=== PATIENT | female | born 1985 | race Caucasian/White ===

== ENCOUNTER 2025-04-24 07:51 | Outpatient (AMB) | payer OTHER, SELFPAY ==
--- NOTE | 2025-04-24 07:56 | A.OFFPC_ITS ---
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 Refrigeration Required: No Accompanied by: Self / Same As Patient Allergies No Known Allergies Allergy (Verified 04/24/25 08:08) Medication List - Last Reconciled 04/24/25 by Mary Krishnamurthy PA-C No Known Home Meds Tobacco use date assessed: 04/24/25 Dental Screening Dental Screen Date: 04/24/25 Did you have a dental visit in the last 12 months?: No Did you have a dental problem in the last 6 months where you did not have access to dental care?: No Was dental information given to patient?: Patient has dentist HPI 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 Presenting for a wellness visit and to establish care. Depression was diagnosed in 2007, and the patient is currently seeing a counselor biweekly through [facility] without medication. The patient reports manageable anxiety without medication. The patient experienced hyperthyroidism post-, which resolved after monitoring for a year. The patient reports gastrointestinal symptoms suggestive of Irritable Bowel Syndrome (IBS), including intermittent diarrhea and upset stomach, potentially related to dietary triggers. The patient has not had a colonoscopy despite a family history of colon cancer in her mother, diagnosed at age 48 vaccines: Td, flu and covid UTD eye doctor: yearly mammo: ordered today colonoscopy: referral placed to GI today pap smear: referral placed to grommet worker today [facility] Family History Mother Colon cancer, Onset Age: 48 Other Substance abuse Social History Household Members: Children Housing: Apartment Are you a primary hospice patient care secretary to a significant other at home: No Do you presently have visiting nurse or other home services: No 75 years or older and lives alone: No Alcohol intake: current Comment: ocasionally Patient Tobacco Use Status: Never used Tobacco e-Cigarette/Vaping Use: Never Used Second Hand Smoke Exposure: No service: No Current occupational status: employed 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 1. Little interest or pleasure in doing things: not at all 2. Feeling down, depressed, or hopeless: not at all 3. Trouble falling or staying asleep, or sleeping too much: not at all 4. Feeling tired or having little energy: not at all 5. Poor appetite or overeating: not at all 6. Feeling bad about yourself - or that you are a failure or have let yourself or your family down: not at all 7. Trouble concentrating on things, such as reading the newspaper or watching television: not at all 8. Moving or speaking so slowly that other people could have noticed. Or the opposite - being so fidgety or restless that you have been moving around a lot more than usual: not at all 9. Thoughts that you would be better off or of hurting yourself in some way: not at all Total score: 0 Depression Screening Interpretation: Negative Depression Screening Done: Yes Source: Developed by Drs. Ronnie Castorena, Lori Lyn, Ga Rosenthal and colleagues, with an educational rojelio from [employer]. Thrive Questionnaire Date Thrive assessed: 04/24/25 I am a: Patient What is your living situation today?: I have a steady place to live Within the past 12 months, did the food you bought not last and you didn't have the money to get more?: Never true Within the past 12 months, did you worry whether your food would run out before you got money to buy more?: Never true Do you have trouble paying for medicines?: No Do you have trouble getting transportation to medical appointments?: No Do you have trouble paying your heating and electricity bill?: No Do you have trouble taking care of your child, family member or friend?: No Do you have trouble with day-to-day activities such as bathing, preparing meals, shopping, managing finances, etc.?: No Are you currently unemployed and looking for a job?: No Are you interested in more education?: No Please select the resources that you would like help with: None Currently or been in a relationship where the following occur: No concerns reported THRIVE Score: 0 AUDIT C Alcohol Use Questionnaire (AUDIT-C) 1. How often do you have a drink containing alcohol?: Monthly or less 2. How many drinks containing alcohol do you have on a typical day when you are drinking?: 1 or 2 3. How often do you have six or more drinks on one occasion?: Never Total Score: 1 Score Reviewed/Action Taken: Yes VINAY-7 AMB Questionnaire VINAY-7 Feeling nervous, anxious, or on edge: 0 = Not at all Not being able to stop or control worryin = Not at all Worrying too much about different things: 0 = Not at all Trouble relaxin = Not at all Being so restless that it is hard to sit still: 0 = Not at all Becoming easily annoyed or irritable: 0 = Not at all Feeling afraid as if something awful might happen: 0 = Not at all Total VINAY-7 score (0-4 normal; 5-9 mild; 10-14 moderate; 15-21 severe): 0 Source: Developed by Drs. Ronnie Castorena, Lori Lyn, Ga Rosenthal and colleagues, with an educational rojelio from [employer]. VINAY-7 Assessment Billing VINAY-7 Assessment Tool: VINAY-7 Assessment 79777 Review of Systems Const Denies body aches, Denies fatigue, Denies fever(s), Denies frequent falls, Denies headache(s) and Denies weakness Eyes Reports no additional complaints and Denies change in vision ENT Denies dysphagia, Denies dizziness, Denies facial pain, Denies headache(s), Denies nasal congestion and Denies odynophagia Card Denies chest pain, Denies syncope, Denies irregular heart rhythm, Denies leg edema, Denies lightheadedness and Denies dyspnea Resp Denies cough and Denies dyspnea GI Denies abdominal pain, Denies constipation, Denies dysphagia, Denies dyspepsia, Reports diarrhea, Reports loose stools, Denies nausea, Denies odynophagia and Denies vomiting Denies urinary frequency, Denies dysuria, Denies urinary hesitancy and Denies urinary urgency Musc Details: left ring finger pain Denies back pain and Denies myalgias Skin/Breast Reports system reviewed and no additional complaints, except as documented Neuro Denies dizziness, Denies syncope, Denies frequent falls, Denies headache(s) and Denies weakness Psych Reports no additional complaints Endo Denies fatigue Physical exam (Primary Care) Vital Signs: Last Vital Signs Pulse 95 04/24/25 08:00 BP 106/80 04/24/25 08:00 Pulse Ox 97 04/24/25 08:00 Oxygen Delivery Method Room Air 04/24/25 08:00 BMI result Body Mass Index 28.4 Tobacco/Smoking Status: Tobacco use Status Tobacco use date assessed 04/24/25 04/24/25 08:06 Patient Tobacco Use Status Never used Tobacco 04/24/25 08:06 e-Cigarette/Vaping Use Never Used 04/24/25 08:06 PHQ-9: PHQ-9 Score PHQ-9: Total score 0 04/24/25 08:45 Depression Screening Interpretation: Negative Thrive Assessment: Date of Thrive Assessment Date Thrive assessed 04/24/25 04/24/25 08:06 Currently or been in a relationship where the following occur: No concerns reported Const General: cooperative, healthy appearing, comfortable and no acute distress Orientation/consciousness: patient oriented x3 HENMT Head: Yes normocephalic Ears: hearing grossly normal bilaterally General nose exam: Normal external nose present Eyes General: appearance normal, both eyes and all related structures Conjunctivae: conjunctivae normal Neck Neck: Yes full ROM and Yes no lymphadenopathy Resp Effort & Inspection: normal respiratory effort Auscultation: clear to auscultation bilaterally, no crackles, no rales, no rhonchi and no wheezes Cardio Rate: regular rate Rhythm: regular rhythm Skin General skin exam: no rashes or lesions noted Neuro General: patient oriented x3 Gait exam (Neuro): Normal gait present Extrem General: Yes normal to inspection, Yes full ROM and No edema Psych Affect: normal affect Attitude: cooperative Insight: Good insight present (Psych) Judgement: Good judgement present (Psych) Coding Level of Care Code New Pt Level 4 (57899) Diagnoses Depression F32.A Family history of colon cancer Z80.0 hyperthyroidism O99.285; E05.90 Diarrhea R19.7 Additional Codes VINAY-7 Assessment Billing - VINAY-7 Assessment Tool: VINAY-7 Assessment 05633 ([id number]) Assessment & Plan Assessment & Plan (1) Depression: Comment: Counselor through [facility] biweekly Code(s): F32.A - Depression, unspecified Category: Medical Plan: Currently following with [facility] for counseling by weekly. Feels good without medication at this time and will reach out should this change. (2) Family history of colon cancer: Code(s): Z80.0 - Family history of malignant neoplasm of digestive organs Category: Medical Plan: Referral was placed to for colonoscopy screening. (3) hyperthyroidism: Code(s): O99.285 - Endocrine, nutritional and metabolic diseases complicating the puerperium; E05.90 - Thyrotoxicosis, unspecified without thyrotoxic crisis or storm Category: Medical Plan: Plan for updated blood work (4) Diarrhea: Code(s): R19.7 - Diarrhea, unspecified Category: Medical Plan: Plan to try low FODMAP diet have a fiber supplement and exercise as tolerated. Follow up in 3 months or sooner as needed Plan The patient will receive referrals for a colonoscopy, mammogram, and Pap smear to address preventative care needs. Blood work will be conducted to screen for cholesterol, thyroid function, vitamins, kidney, liver, and electrolytes. The patient is advised to follow a low FODMAP diet and increase fiber intake to manage symptoms of Irritable Bowel Syndrome IBS). The patient will continue biweekly counseling sessions for depression and anxiety management. Follow-up is scheduled in three months to review blood work results and discuss any further interventions needed based on specialist consultations. This note was constructed using voice recognition software. While every effort has been made to ensure accuracy and director global strategic publisher sales, still areas may have been included sometimes these areas may affect the content or meeting of the given symptoms. Total time spent caring for the patient today was 30 minutes. This includes time spent before the visit reviewing the chart, time spent during the visit, and time spent after the visit and documentation. Patient was informed and verbally consented to the use of an ambient scribe for clinic note documentation during this visit. Orders: Orders MM tomosynthesis screening BI Today Z12.31 - Encounter for screening mammogram for malignant neoplasm of breast Comprehensive Met. Panel Today Z13.1 - Encounter for screening for diabetes mellitus Lipid Panel Today Z13.220 - Encounter for screening for lipoid disorders Vitamin B12 and Folate Today Z13.21 - Encounter for screening for nutritional disorder Vitamin D 25-OH Total Today Z13.21 - Encounter for screening for nutritional disorder Free T4 (Free Thyroxine) Today E05.90 - Thyrotoxicosis, unspecified without thyrotoxic crisis or storm, O99.285 - Endocrine, nutritional and metabolic diseases complicating the puerperium, Z00.00 - Encounter for general adult medical examination without abnormal findings Complete Blood Count Auto Diff Today Z13.0 - Encounter for screening for diseases of the blood and blood-forming organs and certain disorders involving the immune mechanism Referrals Gastroenterology Referral Z12.11 - Encounter for screening for malignant neoplasm of colon, Z80.0 - Family history of malignant neoplasm of digestive organs RAILROAD HAND Referral Z12.4 - Encounter for screening for malignant neoplasm of cervix
--- OUTSIDE RECORDS SUMMARY | 2025-04-24 07:56 | XMS_ITS ---
Author Name [facility] Organization Unknown Encounters Encounter Type Encounter Reason Primary Diagnosis Location Date Ambulatory [facility], [facility]. ([facility]) 08/13/2022 Care Team Organization Name Specialty Phone Email Start Date End Da danielito [facility] Serge [facility] 07/08/20222023
--- OUTSIDE RECORDS SUMMARY | 2025-04-24 07:56 | XMS_ITS | Clinical Summary ---
Author Organization [facility] ity Address [address] [place] [address] Care Team Providers Care Aircraft Parts Assembler Name Role Phone Harshad Kee DO Primary Care Provider [phone] Surgical History Surgery Date Site/Laterality Comments WISDOM TOOTH EXTRACTION PROCEDURE: HISTORICAL WISDOM TEETH EXTRACTION Medical History Medical History Date Comments Thyrotoxicosis 04/27/2006 DX:Thyrotoxicosi s; COMMENT: Saw dr steward-had post thyroidits and than became euthryoid Depression 03/23/2008 DX:Depression; C OMMENT: Deidra Olsen( therapist) Influenza B 08/2019 DX:Influenza B Family History Medical History Relation Name Comments Colon cancer Mother Breast cancer Neg Hx Ovarian cancer Neg Hx Relation Name Status Comments Brother Alive 1,healthy Father both parents he althy Mother Alive Social History Tobacco Use Types Packs/Day Years Used Date Smoking Tobacco: Never Smokeless Tobacco: Never Alcohol Use Standard Drinks/Week Comments Yes 0 (1 standard drink = 0.6 oz pur e alcohol) Comments Unknown Sex and Gender Information Value Date Recorded Sex Assigned at Not on file Legal Sex Female 12:02 AM EST Gender Identity Not on file Sexual Orientation Not on file Obstetrics History Last Filed Vital Signs Vital Sign Reading Time Taken Comments Blood Pressure 89/62 03/21/2022 11:14 AM EDT Pulse 95 03/21/2022 11:14 AM EDT Temperature - - Respiratory Rate - - Oxygen Saturation - - Inhaled Oxygen Concentration - - Weight 80.8 kg (178 lb 3.2 oz) 03/21/2022 11:14 AM EDT Height 172.7 cm (5' 8 ) 03/21/2022 11:14 AM EDT Body Mass Index 27.1 03/21/2022 11:14 AM EDT Plan of Treatment Health Maintenance Due Date Last Done Comments Breast Cancer Screening 1984 HIV Screening 08/03/2022 Hepatitis C Screening 08/03/2022 Social Influencers of Health Screening 08/03/2022 Cervical Cancer Screening: Pap Smear 04/11/2024 04/11/2021 COVID-19 Vaccine ( season) 2024 11/20/2020, 10/30/2020 Depression Screening 08/31/2024 Influenza Vaccine (#1) 2025 8, 06/04/2017, 05/23/2016, Additional history exists DTaP,Tdap,and Td Vaccines (8 - Td or Tdap) 09/30/2026 09/30/2016, 03/23/2008, 10/04/1998, Additional history exists IPV Vaccines Completed 05/25/1989, 08/1986, 1984, Additional history exists MMR Vaccines Completed 03/25/1996, 10/29/1985 Hepatitis B Vaccines Completed 10/01/1998, 03/25/1996, 12/01/1995 HPV Vaccines Completed 10/28/2007, 06/01, 04/01/2007 HIB Vaccines Aged Out No longer eligi ble based on patient's age to complete this topic Hepatitis A Vaccines Aged Out No long er eligible based on patient's age to complete this topic Meningococcal ACWY Vaccine Aged Out N o longer eligible based on patient's age to complete this topic Meningococcal B Vaccine Aged Out No l onger eligible based on patient's age to complete this topic Pneumococcal Vaccine: Pediatrics (0 to 5 Years) and At-Risk Patients (6 to 49 Years) Aged Out No longer eligible based on patient's age to complete this topic RSV Immunization Patients Under 20 months Aged Out No longer eligible based on patient's age to complete this topic Varicella Vaccines Aged Out No longer eligible based on patient's age to complete this topic Procedures Procedure Name Priority Date/Time Associated Diagnosis Comments PAP SMEAR Routine 04/11/2021 from Last 3 Months or Most Recently Relevant to Health Maintenance Results * Pap smear (04/11/2021) 04/11/2021 Narrative HISTORICAL TESTING LAB RESULTING AGENCY - 04/17/2021 10:40 AM EDT [id number] THINPREP PAP, IMAGED: NEGATIVE FOR SQUAMOUS INTRAEPITHELIAL LESION AND MALIGNANCY . ABUNDANT PARTIALLY OBSCURING ACUTE INFLAMMATORY CELLS ARE PRESENT. STACY PINEDO(ASCP) (CASE ELECTRONICALLY SIGNED 04 17 2021) RESULT OF APTIMA HIGH RISK HPV ASSAY: HIGH RISK HPV: NEGATIVE (SEROTYPES 16,18,31,33,35,39,45,51,52,56,58,59,66,68) COMPLETED ON 2021-04-15 ADEQUACY: SATISFACTORY ENDOCERVICAL/TRANSFORMATION ZONE COMPONENT PRESENT. SOURCE: THINPREP PAP HPV ANY DX: REFLEX 16 AND 18, CERVICAL, IMAGED CLINICAL INFORMATION: HPV ANY DIAGNOSIS. HORMONES, PAP HX NEG 2016, LMP 03/20/21 [Z12.4, Z01.419] Cathleen Fortune [facility] [facility] CYTOLOGY ORDERABLES Final Result HISTORICAL TESTING LAB RESULTING AGENCY from Last 3 Months or Most Recently Relevant to Health Maintenance Care Teams Aircraft Parts Assembler Relationship Specialty Start Date End Date Harshad Kee DO PCP - General Internal Medicine 12/25/21
[2025-04-24 08:00] VITALS: BP 106/80; PULSE 95; O2SAT 97; BMI 28.4
== END 2025-04-24 08:39 | disposition home or self-care (01) ==
LOC: HO.HMCH 07:52
DX: F32.A Depression, unspecified (principal); Z80.0 Family history of malignant neoplasm of digestive organs; O99.285 Endocrine, nutritional and metabolic diseases complicating the puerperium; E05.90 Thyrotoxicosis, unspecified without thyrotoxic crisis or storm; R19.7 Diarrhea, unspecified

== ENCOUNTER → 2025-04-24 07:51 | Outpatient (BNVA) | payer OTHER, SELFPAY | DX: O99.285 Endocrine, nutritional and metabolic diseases complicating the puerperium (principal); O99.345 Other mental disorders complicating the puerperium; F53.0 Postpartum depression; E05.90 Thyrotoxicosis, unspecified without thyrotoxic crisis or storm; R19.7 Diarrhea, unspecified; Z80.0 Family history of malignant neoplasm of digestive organs | CPT/HCPCS: 96127; 99202 ==

== ENCOUNTER 2025-06-23 07:33 | Outpatient (REF) | payer OTHER, SELFPAY ==
--- NOTE | ~2025-06-23 | MM_ITS ---
EXAMINATION: MM SCREENING DIGITAL BREAST TOMOSYNTHESIS, BILATERAL CLINICAL INFORMATION: Screening. Asymptomatic. COMPARISON: Mammography: Baseline. TECHNIQUE: Digital breast mammography with tomosynthesis is performed in both the craniocaudal and mediolateral oblique views along with computer-aided detection (CAD). FINDINGS: The breasts are heterogeneously dense, which may obscure small masses. There are no significant masses, abnormal calcifications, or other abnormalities. MM/MM tomosynthesis screening BI IMPRESSION: No mammographic evidence of malignancy. ASSESSMENT: BI-RADS Category 1: Negative RECOMMENDATION: Routine annual mammography screening. 1 year F/U This examination should not preclude the clinical evaluation of a suspicious palpable abnormality. This patient's information was entered into a reminder system with a target due date for their next mammogram. Electronically signed by: Venus Vaz DO 06/27/2025 11:09 AM NORM
--- OUTSIDE RECORDS SUMMARY | 2025-06-23 07:36 | XMS_ITS | Clinical Summary ---
Author Organization [facility] ity Address [address] [place] [address] Care Team Providers Care Customer Counter Representative Name Role Phone Harshad Kee DO Primary Care Provider [phone] Surgical History Surgery Date Site/Laterality Comments WISDOM [...] Cervical Cancer Screening: Pap Smear 04/11/2024 04/11/2021 Depression Screening 08/31/2024 COVID-19 Vaccine ( season) 2025 11/20/2020, 10/30/2020 Influenza Vaccine (#1) 2025 8, 06/04/2017, 05/23/2016, Additional history exists DTaP,Tdap,and Td Vaccines (8 - Td or Tdap) 09/30/2026 09/30/2016, 03/23/2008, 10/04/1998, Additional history exists RSV Immunization Adult Patients (1 - 1-dose 75+ series) 02/28/2059 IPV Vaccines Completed 05/25/1989, 08/1986, 1984, Additional [...] RESULTING AGENCY - 04/17/2021 10:40 AM EDT [id number] THINPREP PAP, IMAGED: NEGATIVE FOR SQUAMOUS INTRAEPITHELIAL [...] HPV ANY DIAGNOSIS. HORMONES, PAP HX NEG 2015, LMP 03/20/21 [Z12.4, Z01.419] Cathleen [facility] LAB CYTOLOGY ORDERABLES Final Result HISTORICAL TESTING LAB RESULTING AGENCY from Last 3 Months or Most Recently Relevant to Health Maintenance Care Teams Customer Counter Representative Relationship Specialty Start Date End Date Harshad Kee DO PCP - General Internal Medicine 12/25/21
== END 2025-06-23 07:34 | disposition home or self-care (01) ==
LOC: HO.MAMMO 07:33
DX: Z12.31 Encounter for screening mammogram for malignant neoplasm of breast (principal)
CPT/HCPCS: 77063; 77067

== ENCOUNTER → 2025-06-23 07:45 | Outpatient (BNV) | payer OTHER, SELFPAY | PROVIDERS: Visit Provider Internal Medicine | DX: Z12.31 Encounter for screening mammogram for malignant neoplasm of breast (principal) | CPT/HCPCS: 77063; 77067 ==

== ENCOUNTER 2025-08-07 08:53 | Outpatient (REF) | payer OTHER, SELFPAY ==
[2025-08-07 15:58] LABS: Resp Syncy Virus RNA Qual PCR NEGATIVE (Negative); SARS COV2 PCR INHOUSE NEGATIVE (Negative)
== END 2025-08-07 08:54 | disposition home or self-care (01) ==
LOC: HO.LAB 08:53
PROVIDERS: Visit Provider Physician Assistant Medical
DX: Z03.818 Encounter for observation for suspected exposure to other biological agents ruled out (principal)
CPT/HCPCS: 87637

== ENCOUNTER 2025-08-07 08:53 | Outpatient (AMB) | payer OTHER, SELFPAY ==
--- NOTE | 2025-08-07 09:13 | AM.OFFWIN_ITS ---
Intake Vital Signs 08/07/25 09:14 Height 5 ft 8 in Weight 194 lb BMI 29.5 BP 108/60 Blood Pressure Location Rt brachial Position Sitting Pulse 83 Pulse Source Pulse Oximeter Temp 98.3 F Temp Source Oral Pulse Oximetry (%) 99 Oxygen Delivery Method Room Air Intake Visit Reasons: EP Possible sinus infection, right eye irritated Intake Note: Patient presents c/o sinus congestion/pressure, stuffy nose, body aches x1 week. Patient also c/o right eye itchy, red, puffy since this morning. Patient Tobacco Use Status: Never used Tobacco Allergies No Known Allergies Allergy (Verified 08/07/25 09:15) Do you need a note to return to daycare/school/sports/work: Yes HPI HPI Comments History of Present Illness Details History - The patient is a 40-year-old female pr esenting with symptoms of a sinus infection which began approximately one week ago. - Her symptoms include congestion, sinus pressure, body aches, and a loss of smell and taste. - She reports thick, green nasal dischar ge and some ear pressure but denies any fever or cough. - Today, she woke with a red and puffy r ight eye. - The patient denies getting sinus infec tions often. 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 - She attempted treatment with Mucinex y but experienced no relief. - She denies fever, chills, PALMA, CP, SOB, abd pain, or n/v/d. Physical Exam General: Cooperative, healthy appearing, comfortable and no acute distress Orientation/consciousness: Patient oriented x3 Limitations: No limitations Head: Normal to inspection Ears: Hearing grossly normal bilaterally, external ears normal and TM's normal bilaterally Nose: Normal external nose present, normal nares present, and no nasal discharge present. Face and sinus: Sinuses tender to palpation. Mouth: Normal oral and palatal mucosa present and moist mucous membranes noted. Throat: Tonsils normal. Uvula is midline. Posterior oropharynx with erythema and no exudates. Eyes: Right eye red and puffy, top lid slightly red. Neck: Normal visual inspection, full ROM. No lymphadenopathy noted. Respiratory: Clear to auscultation bilaterally. Normal respiratory effort, able to speak in complete sentences. No respiratory distress, not tachypneic, no tripod positioning and no use of accessory muscles. Cardiovascular: Regular rate and rhythm. Normal S1 and S2 Skin: No rashes or lesions noted Patient was informed and verbally consented to the use of an ambient scribe for clinic note documentation during this visit [facility] Family History Mother Colon cancer, Onset Age: 48 Other Substance abuse Social History Household Members: Children Housing: Apartment Are you a primary care coordinator to a significant other at home: No Do you presently have visiting nurse or other home services: No 75 years or older and lives alone: No Alcohol intake: current Comment: ocasionally Patient Tobacco Use Status: Never used Tobacco e-Cigarette/Vaping Use: Never Used Second Hand Smoke Exposure: No service: No Current occupational status: employed 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 Current occupational exposures/hazards: No Cognitive needs: No Hearing needs: No Vision needs: Yes Review of Systems Const All systems reviewed & are unremarkable except as noted in HPI and below Physical Exam Vital Signs: Last Vital Signs Temp 98.3 F 08/07/25 09:14 Pulse 83 08/07/25 09:14 BP 108/60 08/07/25 09:14 Pulse Ox 99 08/07/25 09:14 Oxygen Delivery Method Room Air 08/07/25 09:14 BMI result Body Mass Index 29.5 Assessment & Plan Assessment & Plan (1) Sinus congestion: Code(s): R09.81 - Nasal congestion Plan Most likely Acute Bacterial Sinusitis vs allergic rhinitis vs viral illness vs covid vs RSV vs flu plan - The diagnosis is suspected to be bacterial in nature due to the lack of improvement with Mucinex. - A prescription for antibiotics will be sent to the pharmacy. - A nasal spray will be prescribed to help dry the sinus passages. - The patient may continue using Mucinex or other [id number] medications for symptomatic relief. - A swab for influenza, COVID-19, and RSV was collected and will be sent for testing, with a follow-up call if results are positive. - The patient's right eye symptoms, including redness and puffiness, are likely due to sinus pressure and drainage and are expected to improve with antibiotics. - The patient was advised to use warm compresses on her eye and monitor for improvement. - She was informed that some crusting ocular drainage can be normal as the sinuses clear. - Symptom improvement is expected within 24 hours of starting antibiotics. - A work note will be provided for the patient. Orders: Orders SARS-CoV2/FLU/RSV Today R09.89 - Other specified symptoms and signs involving the circulatory and respiratory systems Medications: New fluticasone propionate 50 mcg/actuation administer into each nostril 1 spray intranasal Q12H 16 grams 0RF amoxicillin-pot clavulanate 875-125 mg 1 tab PO Q12H 14 tabs 0RF Coding Level of Care Code Est Pt Level 3 (33292) Diagnoses Sinus congestion R09.81
[2025-08-07 09:14] VITALS: BP 108/60; PULSE 83; TEMP 36.8; O2SAT 99; BMI 29.5
== END 2025-08-07 09:43 | disposition home or self-care (01) ==
PROVIDERS: Visit Provider Physician Assistant Medical
DX: R09.81 Nasal congestion (principal)